=== PATIENT | female | born 1935 | race Caucasian/White ===

== ENCOUNTER → 2019-01-14 | Outpatient (CLI) | payer MEDICARE, BC ==
--- NOTE | 2019-01-14 22:01 | MR ---
EXAMINATION TYPE: MR shoulder RT wo con DATE OF EXAM: 01/14/2019 COMPARISON: None HISTORY: Rt shoulder pain, weakness TECHNIQUE: Multiplanar, multisequence imaging of the right shoulder is performed without contrast. FINDINGS: Fluid is in the subacromial bursa and subdeltoid bursa. Fluid transverses the supraspinatus tendon compatible with a small tear. No retraction is evident. Supraspinatus tendon extends distal t o the acromion. A small acromial spur is at the inferior aspect which can contribute to impingement s yndrome. Supraspinatus muscle is normal. Infraspinatus and subscapularis muscles appear intact. Fluid surrounds subscapularis tendon. Acromioclavicular Joint: Acromioclavicular joint hypertrophy is present with upward spurring. Glenohumeral Joint: There is narrowing of the glenohumeral joint space. Labrum: The labrum appears grossly intact given limitation of non-arthrogram study. Biceps Tendon: There is fluid surrounding the long head of the biceps tendon. Moderate tendinosis dulce uld be considered. Bone marrow signal: No focal abnormal marrow signal is appreciated. Other: No additional significant abnormality is appreciated. IMPRESSION: 1. Perforation of the distal supraspinatus tendon compatible with small tear without retraction. Comp lete tear is not evident. 2. Small joint effusion fluid extending into the subscapularis and subdeltoid spaces. 3. Tendinosis of the long head of biceps tendon.
== END | disposition home or self-care (01) ==
LOC: RADMRIMAIN 17:02
PROVIDERS: ATTEND Family Medicine
DX: M25.411 Effusion, right shoulder (principal); M67.813 Other specified disorders of tendon, right shoulder

== ENCOUNTER 2022-08-01 08:37 | Day surgery (SDC) | payer MEDICARE, BC ==
[2022-07-27 14:38] VITALS: BMI 30.4
[~2022-08-01 08:37] MED LIST: LACTATED RINGERS 1,000 ML IV SCH
[2022-08-01 09:00] VITALS: RESP 16; TEMP 97.3
[2022-08-01 09:07] LABS: Glucose,Whole Blood 174 mg/dL (70-110)
--- NOTE | 2022-08-01 09:22 | P.GSHP ---
History of Present Illness H&P Date: 08/01/22 CHIEF COMPLAINT: GERD HISTORY OF PRESENT ILLNESS: The patient is a 87-year-old female who presents reports gastroesophageal reflux disease. Upper endoscopy was offered for further evaluation and management. PAST MEDICAL HISTORY: Please see list. PAST SURGICAL HISTORY: Please see list. MEDICATIONS: Please see list. ALLERGIES: Please see list. SOCIAL HISTORY: No illicit drug use FAMILY HISTORY: No reports of Crohn disease or ulcerative colitis. REVIEW OF ORGAN SYSTEMS: CONSTITUTIONAL: No reports of fevers or chills. GI: Denies any blood in stools or constipation. PHYSICAL EXAM: VITAL SIGNS: Stable GENERAL: Well-developed and pleasant in no acute distress. HEENT: No scleral icterus. Extraocular movements grossly intact. Moist buccal mucosa. NECK: Supple without lymphadenopathy. CHEST: Unlabored respirations. Equal bilateral excursions. CARDIOVASCULAR: Regular rate and rhythm. Distal 2+ pulses. ABDOMEN: Soft, nondistended. MUSCULOSKELETAL: No clubbing, cyanosis, or edema. ASSESSMENT: 1. Gastroesophageal reflux disease PLAN: 1. Recommend proceeding with an upper endoscopy Past Medical History Past Medical History: Diabetes Mellitus, Hyperlipidemia, Hypertension Additional Past Medical History / Comment(s): HIATAL HERNIA. SOME DIFFICULTY SWALLOWING AT TIMES. HX TRIGEMINAL NEURALGIA. ANEMIA History of Any Multi-Drug Resistant Organisms: None Reported Past Surgical History: Cholecystectomy Additional Past Surgical History / Comment(s): BILAT CATARACTS REMOVED WITH LENS IMPLANTS. EGD/COLONOSCOPY. TRIGEMINAL NEURALGIA TX. ESOPHAGEAL NODULE REMOVED Past Anesthesia/Blood Transfusion Reactions: No Reported Reaction Smoking Status: Never smoker - Past Family History Mother Family Medical History: Cancer Sister(s) Family Medical History: Cancer Daughter(s) Family Medical History: Cancer Medications and Allergies Home Medications Medication Instructions Recorded Confirmed Type Aspirin EC [Ecotrin Low Dose] 81 mg PO DAILY 07/27/22 07/27/22 History Biotin 5 mg PO DAILY 07/27/22 07/27/22 History Cholestyramine (with Sugar) 4 gm PO DAILY 07/27/22 07/27/22 History [Cholestyramine Packet] Cyanocobalamin [Vitamin B-12] 500 mcg PO DAILY 07/27/22 07/27/22 History Ezetimibe [Zetia] 10 mg PO DAILY 07/27/22 07/27/22 History Ferrous Sulfate [Feosol] 325 mg PO BID 07/27/22 07/27/22 History Furosemide [Lasix] 20 mg PO MOWEFR 07/27/22 08/01/22 History Insulin Regular [HumuLIN R] 10 units SQ AC-SUPPER 07/27/22 07/27/22 History Insulin Regular [HumuLIN R] 57 units SQ QAM 07/27/22 07/27/22 History Magnesium Oxide [Magnesium] 500 mg PO DAILY 07/27/22 07/27/22 History Rosuvastatin [Crestor] 10 mg PO FR 07/27/22 07/27/22 History glipiZIDE 5 mg PO AC-SUPPER 07/27/22 07/27/22 History glipiZIDE [Glucotrol] 10 mg PO AC-BRKFST 07/27/22 07/27/22 History lisinopriL [Zestril] 5 mg PO DAILY 07/27/22 07/27/22 History metFORMIN HCL [Glucophage] 500 mg PO BID 07/27/22 07/27/22 History Allergies Allergy/AdvReac Type Severity Reaction Status Date / Time Latex, Natural Rubber Allergy Rash/Hives Verified 07/27/22 14:27 Surgical - Exam Vital Signs Temp Pulse Resp BP Pulse Ox 97.3 F L 106 H 16 123/57 98 08/01/22 08:59 08/01/22 08:59 08/01/22 08:59 08/01/22 08:59 08/01/22 08:59 Results - Labs Abnormal Lab Results - Last 24 Hours (Table) 08/01/22 Range/Units 09:03 POC Glucose (mg/dL) 174 H (70-110) mg/dL
[2022-08-01] MEDS ORDERED: LIDOCAINE 2% INJ 20 MG/ML (2 ML VIAL) ONE (09:24)
[2022-08-01] MEDS ORDERED: PROPOFOL 10 MG/ML 20 ML VIAL IV ONE (09:24)
[2022-08-01 09:44] LABS: Glucose,Whole Blood 163 mg/dL (70-110)
[2022-08-01 10:11] VITALS: BP 106/68; PULSE 80
--- NOTE | 2022-08-01 11:20 | P.PCN ---
Date of Procedure: 08/01/22 Description of Procedure: PREOPERATIVE DIAGNOSIS: Diaphragmatic hiatal hernia Anemia Dysphagia POSTOPERATIVE DIAGNOSIS: Diaphragmatic hiatal hernia, paraesophageal, incarcerated Chronic gastritis OPERATION: Esophagogastroduodenoscopy with biopsies along antrum, duodenum SURGEON: Amira Matt MD ANESTHESIA: MAC. INDICATIONS: The patient is a 87-year-old female who presents with dysphagia, anemia. Benefits and risks of the procedure were described. Informed consent was obtained. DESCRIPTION: The patient was brought into the endoscopy suite and laid in the left lateral decubitus position. An Olympus gastroscope was passed along the posterior oropharynx down to the distal esophagus where the squamocolumnar junction was encountered at 33 cm from the incisors. The stomach was entered and no bile reflux was found. Additional findings are listed below. Biopsies with cold forceps were obtained of the antrum. The first through third portion of the duodenum was examined. Retroflexion of the scope confirmed Hill grade 4 lower esophageal valve. The squamocolumnar junction demonstrated LA grade B erosive esophagitis. The stomach was desufflated. The patient tolerated the procedure well. FINDINGS: Squamocolumnar junction 33 cm from the incisors. Diaphragmatic hiatus at 40 cm. Hiatal hernia, 7 cm, paraesophageal Hill grade 4 lower esophageal valve. LA grade B erosive esophagitis. Biopsies obtained duodenum Chronic gastritis with ulceration along hiatal hernia. RECOMMENDATIONS: 1. Recommend surgical correction of large paraesophageal hiatal hernia due to dysphagia and anemia 2. Recommend cardiac risk assessment for repair of large paraesophageal hiatal hernia
== END 2022-08-01 10:43 | disposition home or self-care (01) ==
LOC: ORWHC2ENDO 08:37
PROVIDERS: ATTEND Surgery Plastic and Reconstructive Surgery
DX: K29.50 Unspecified chronic gastritis without bleeding (principal); K21.00 Gastro-esophageal reflux disease with esophagitis, without bleeding; K44.9 Diaphragmatic hernia without obstruction or gangrene; D64.9 Anemia, unspecified; E11.9 Type 2 diabetes mellitus without complications; I10 Essential (primary) hypertension; E78.5 Hyperlipidemia, unspecified; Z90.49 Acquired absence of other specified parts of digestive tract; Z98.890 Other specified postprocedural states; Z79.82 Long term (current) use of aspirin; Z79.84 Long term (current) use of oral hypoglycemic drugs; Z91.040 Latex allergy status; Z79.899 Other long term (current) drug therapy
CPT/HCPCS: 43239; J2704; J2001; 88305

== ENCOUNTER → 2022-10-15 | Outpatient (CLI) | payer MEDICARE, BC ==
--- NOTE | 2022-10-15 11:40 | FL ---
EXAMINATION TYPE: FL barium swallow DATE OF EXAM: 10/15/2022 11:30 AM COMPARISON: None CLINICAL INDICATION:Female, 87 years old with history of K44.9 DIAPHRAGMATIC HERNIA; TECHNIQUE: The procedure was explained and patient history elicited. All patient questions were ans wered prior to start of procedure. Multiple spot fluoroscopic images of the esophagus were obtained a fter the oral ingestion of effervescent crystals and liquid barium as the contrast agent. Fluoroscopic time: 1.22 min Fluoroscopic images: 0 Radiographs 887.16 taken: 59 DAP: [id number] FINDINGS: Tertiary contractions with delayed emptying of the esophagus. Moderate to large hiatal hernia is susp ected with lucency projecting near the distal esophagus. This impresses upon the distal esophagus del aying emptying into the stomach. IMPRESSION: Suspected moderate to large hiatal hernia with mass effect on the distal esophagus during emptying. Esophageal dysmotility.
== END | disposition home or self-care (01) ==
LOC: RADUSWWP 10:34
PROVIDERS: ATTEND Surgery Plastic and Reconstructive Surgery
DX: K44.9 Diaphragmatic hernia without obstruction or gangrene (principal); K22.4 Dyskinesia of esophagus
CPT/HCPCS: 74220

== ENCOUNTER 2022-11-15 11:52 | Day surgery (SDC) | payer MEDICARE, BC ==
--- NOTE | 2022-11-15 06:43 | P.GSHP ---
History of Present Illness H&P Date: 11/15/22 CHIEF COMPLAINT: Paraesophageal hiatal hernia with gastroesophageal reflux disease. HISTORY OF PRESENT ILLNESS: The patient is a 87-year-old female who presents with symptomatic paraesophageal hiatal hernia over one year with gastroesophageal reflux disease. She has completed upper endoscopy workup. Now she presents for surgical intervention. PAST MEDICAL HISTORY: Please see list. PAST SURGICAL HISTORY: Please see list. MEDICATIONS: Please see list. ALLERGIES: Please see list. SOCIAL HISTORY: No illicit drug use FAMILY HISTORY: No reports of Crohn disease or ulcerative colitis. REVIEW OF ORGAN SYSTEMS: CONSTITUTIONAL: No reports of fevers or chills. GI: Denies any blood in stools or constipation. PHYSICAL EXAM: VITAL SIGNS: Stable GENERAL: Well-developed pleasant and in no acute distress. HEENT: No scleral icterus. Extraocular movements grossly intact. Moist buccal mucosa. NECK: Supple without lymphadenopathy. CHEST: Unlabored respirations. Equal bilateral excursions. CARDIOVASCULAR: Regular rate and rhythm. Distal 2+ pulses. ABDOMEN: Soft, nondistended. No peritoneal signs. MUSCULOSKELETAL: No clubbing, cyanosis, or edema. SKIN: Well-perfused. Good skin turgor. REPORTS: Upper endoscopy demonstrates paraesophageal hiatal hernia BARIUM SWALLOW: Images reviewed demonstrating paraesophageal hiatal hernia. This is my independent interpretation. REPORTS: Cardiology risk assessment obtained. Please see chart. ASSESSMENT: 1. Diaphragmatic paraesophageal hiatal hernia with severe gastroesophageal reflux disease. PLAN: 1. Recommend proceeding with a robotic paraesophageal hiatal hernia with possible mesh. 2. Benefits and risks of surgical intervention was discussed including possibility of open technique. 3. Inpatient hospitalization recommended of 2 nights 4. DVT prophylaxis. 5. Antibiotic prophylaxis. 6. She has also completed a very low caloric high-protein diet to address underlying hepatomegaly. 7. Non narcotic pain management including abdominal wall block described 8. Blood sugar glucose described. 9. Weight loss management described. Past Medical History Past Medical History: Diabetes Mellitus, Hyperlipidemia, Hypertension Additional Past Medical History / Comment(s): HIATAL HERNIA. SOME DIFFICULTY SWALLOWING AT TIMES. 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 ANEMIA- gets iron infusions. has "kidney problems" nothing diagnosed as yet History of Any Multi-Drug Resistant Organisms: None Reported Past Surgical History: Cholecystectomy Additional Past Surgical History / Comment(s): BILAT CATARACTS REMOVED WITH LENS IMPLANTS, colonocopy polyps removed. EGD/COLONOSCOPY. TRIGEMINAL NEURALGIA TX. ESOPHAGEAL NODULE REMOVED Past Anesthesia/Blood Transfusion Reactions: No Reported Reaction Additional Past Anesthesia/Blood Transfusion Reaction / Comment(s): no transfusion issues reported Smoking Status: Never smoker - Past Family History Mother Family Medical History: Cancer Sister(s) Family Medical History: Cancer Daughter(s) Family Medical History: Cancer Medications and Allergies Home Medications Medication Instructions Recorded Confirmed Type Aspirin EC [Ecotrin Low Dose] 81 mg PO DAILY 07/27/22 11/12/22 History Cyanocobalamin [Vitamin B-12] 500 mcg PO DAILY 07/27/22 11/12/22 History Ezetimibe [Zetia] 10 mg PO DAILY 07/27/22 11/12/22 History Ferrous Sulfate [Iron (65 MG 325 mg PO BID 07/27/22 11/12/22 History Elemental)] Furosemide [Lasix] 20 mg PO MOWEFR 07/27/22 11/12/22 History Insulin Regular [HumuLIN R] 10 units SQ AC-SUPPER 07/27/22 11/12/22 History Insulin Regular [HumuLIN R] 57 units SQ QAM 07/27/22 11/12/22 History Rosuvastatin [Crestor] 10 mg PO FR 07/27/22 11/12/22 History glipiZIDE 5 mg PO AC-SUPPER 07/27/22 11/12/22 History glipiZIDE [Glucotrol] 10 mg PO AC-BRKFST 07/27/22 11/12/22 History lisinopriL [Zestril] 5 mg PO DAILY 07/27/22 11/12/22 History metFORMIN HCL [Glucophage] 500 mg PO BID 07/27/22 11/12/22 History Multivitamin/Iron/Folic Acid 1 tab PO DAILY 11/12/22 11/12/22 History [Centrum Complete Multivit Tab] Vit D3(Unk) 1 tab PO DAILY 11/12/22 11/12/22 History Allergies Allergy/AdvReac Type Severity Reaction Status Date / Time Latex, Natural Rubber Allergy Rash/Hives Verified 11/12/22 15:01 Sulfa (Sulfonamide Allergy Rash/Hives Verified 11/12/22 15:01 Antibiotics)
[~2022-11-15 11:52] MED LIST changes: +ACETAMINOPHEN TAB 500 MG TAB PO PRN; +HEPARIN SODIUM,PORCINE/PF 5,000 UNIT/0.5 ML SYRINGE SQ PRN; +LACTATED RINGERS 1,000 ML IV ONE; -LACTATED RINGERS 1,000 ML IV SCH
[2022-11-15 13:04] VITALS: BP 123/54; PULSE 91; RESP 18; TEMP 97.6
[2022-11-15 13:46] LABS: Glucose,Whole Blood 151 mg/dL (70-110)
[2022-11-15] MEDS: ONDANSETRON 4 MG/2 ML VIAL IVP PRN ×2 (13:56→13:59)
[2022-11-15 14:01] LABS: Anisocytosis Slight; Basophils # (A) 0.1 k/uL (0-0.2); Basophils % (A) 1 %; Eosinophils # (A) 0.1 k/uL (0-0.7); Eosinophils % (A) 1 %; HCT 36.9 % (34.0-46.0); HGB 12.6 gm/dL (11.4-16.0); Lymphocytes # (A) 2.4 k/uL (1.0-4.8); Lymphocytes % (A) 22 %; MCH 31.4 pg (25.0-35.0); MCHC 34.2 g/dL (31.0-37.0); Mean Platelet Volume 9.5; Monocytes # (A) 0.7 k/uL (0-1.0); Monocytes % (A) 6 %; Neutrophils # (A) 7.4 k/uL (1.3-7.7); Neutrophils % (A) 68 %; Platelet Count 245 k/uL (150-450); RBC 4.01 m/uL (3.80-5.40); RDW 18.6 % (11.5-15.5); WBC 10.9 k/uL (3.8-10.6)
[2022-11-15 14:16] LABS: ALT 39 U/L (4-34); African American GFR (CKD) 54 (>60 ml/min/1.73 sqM); Albumin 4.5 g/dL (3.5-5.0); Anion Gap 11 mmol/L; Blood Urea Nitrogen 39 mg/dL (7-17); Calcium 9.8 mg/dL (8.4-10.2); Carbon Dioxide 16 mmol/L (22-30); Chloride 111 mmol/L (98-107); Glucose 147 mg/dL (74-99); Non-African American GFR(CKD) 47 (>60 ml/min/1.73 sqM); Sodium 138 mmol/L (137-145); Total Bilirubin 0.6 mg/dL (0.2-1.3); Total Protein 7.6 g/dL (6.3-8.2)
[2022-11-15 14:32] LABS: AST 41 U/L (14-36); Alkaline Phosphatase 92 U/L (38-126); Potassium 5.8 mmol/L (3.5-5.1)
--- NOTE | 2022-11-15 15:58 | P.PN ---
Subjective Progress Note Date: 11/15/22 CHIEF COMPLAINT: Paraesophageal hiatal hernia HISTORY OF PRESENT ILLNESS: The patient is a 87-year-old female who presents with symptomatic paraesophageal hiatal hernia. She has been following her to be protein diet. Her family is at bedside. She denies known history of high potassium. She does take Zestril for diabetic nephropathy. She denies any chest pain. ROS: No reports of nausea and vomiting. No fevers or chills. No new chest pain. No productive sputum PHYSICAL EXAM: VITAL SIGNS: Reviewed CONSTITUTIONAL: Well developed and in no acute distress. EYES: Conjuctivae without sclera icterus. Extraocular movements grossly intact. HEAD, EARS, NOSE, THROAT: Moist buccal mucosa. Head is atraumatic, normocephalic. Hears conversational speech. No nasal drainage. RESPIRATORY: Non-labored respirations and equal bilateral excursions. CARDIOVASCULAR: Palpable 2+ radial pulses. ABDOMEN: Nontender MUSCULOSKELETAL: No gross deformity of the lower extremities noted. No clubbing. No cyanosis. SKIN: Good skin turgor. Well perfused. NEUROLOGIC: Cranial nerves II through XII grossly intact. No focal or lateralizing signs. PSYCH: Appropriate affect. Alert and oriented to person, place and time. CLINICAL LABS: Reviewed. Potassium elevated 5.8 down to 5.5 on repeat. Potas sium in 2016 was 5.3. ASSESSMENT: 1. Paraesophageal hiatal hernia, incarcerated 2. Diabetes type 2 with diabetic nephropathy 3. Hyperkalemia PLAN: 1. Discussion with anesthesia including family performed at bedside. Due to the high-risk nature of the procedure, comorbidities and very high potassium level, surgery is canceled for today. 2. Patient is not symptomatic from hyperkalemia. Medical reconciliation performed with discontinue Zestril and use low potassium foods. 3. She may eat normal diet throughout the weekend until Saturday. 4. Surgery scheduled for November 23 with repeat blood work November 19 and November 22. Lap sheet given. 5. All questions addressed. Objective - Vital Signs Vital signs: Vital Signs Temp 97.6 F 11/15/22 13:03 Pulse 91 11/15/22 13:03 Resp 18 11/15/22 13:03 BP 123/54 11/15/22 13:03 Pulse Ox 96 11/15/22 13:03 FiO2 Intake & Output 11/14/22 11/15/22 11/15/22 18:59 06:59 18:59 Weight 89.1 kg - Labs CBC & Chem 7: 11/15/22 13:44 11/15/22 14:53 Labs: Abnormal Lab Results - Last 24 Hours (Table) 11/15/22 11/15/22 11/15/22 Range/Units 13:43 13:44 13:44 WBC 10.9 H (3.8-10.6) k/uL RDW 18.6 H (11.5-15.5) % Potassium 5.8 H (3.5-5.1) mmol/L Chloride 111 H (98-107) mmol/L Carbon Dioxide 16 L (22-30) mmol/L BUN 39 H (7-17) mg/dL Creatinine 1.06 H (0.52-1.04) mg/dL Glucose 147 H (74-99) mg/dL POC Glucose (mg/dL) 151 H (70-110) mg/dL AST 41 H (14-36) U/L ALT 39 H (4-34) U/L 11/15/22 Range/Units 14:53 WBC (3.8-10.6) k/uL RDW (11.5-15.5) % Potassium 5.5 H (3.5-5.1) mmol/L Chloride (98-107) mmol/L Carbon Dioxide (22-30) mmol/L BUN (7-17) mg/dL Creatinine (0.52-1.04) mg/dL Glucose (74-99) mg/dL POC Glucose (mg/dL) (70-110) mg/dL AST (14-36) U/L ALT (4-34) U/L
== END 2022-11-15 16:17 | disposition home or self-care (01) ==
LOC: OR 11:52
PROVIDERS: ATTEND Surgery Plastic and Reconstructive Surgery
DX: K44.0 Diaphragmatic hernia with obstruction, without gangrene (principal); L02.31 Cutaneous abscess of buttock; E78.5 Hyperlipidemia, unspecified; E11.21 Type 2 diabetes mellitus with diabetic nephropathy; I10 Essential (primary) hypertension; E87.5 Hyperkalemia; Z90.49 Acquired absence of other specified parts of digestive tract; Z80.9 Family history of malignant neoplasm, unspecified; Z79.82 Long term (current) use of aspirin; Z79.899 Other long term (current) drug therapy; Z79.4 Long term (current) use of insulin; Z79.84 Long term (current) use of oral hypoglycemic drugs; Z91.040 Latex allergy status; Z88.2 Allergy status to sulfonamides; Z88.1 Allergy status to other antibiotic agents; Z79.01 Long term (current) use of anticoagulants
CPT/HCPCS: 88304; 80053; 84132; 85025; 87070; 87205; 87075; 87077; 87186; 10060; J2405

== ENCOUNTER → 2022-11-19 | Outpatient (CLI) | payer MEDICARE, BC ==
[2022-11-19 16:55] LABS: ALT 27 U/L (8-44); AST 24 U/L (13-35); Albumin 4.5 d/dL (3.8-4.9); Alkaline Phosphatase 109 U/L (41-126); Blood Urea Nitrogen 25.6 mg/dL (9.0-27.0); Carbon Dioxide 19.9 mmol/L (21.6-31.8); Chloride 110 mmol/L (96-109); Globulin 2.5 d/dL (1.6-3.3); Glucose 190 mg/dL (70-110); Sodium 141 mmol/L (135-145); Total Bilirubin 0.3 mg/dL (0.3-1.2)
== END | disposition home or self-care (01) ==
LOC: LABWHC1 08:27
PROVIDERS: ATTEND Surgery Plastic and Reconstructive Surgery
DX: E11.21 Type 2 diabetes mellitus with diabetic nephropathy (principal)
CPT/HCPCS: 36415; 80053

== ENCOUNTER → 2022-11-22 | Outpatient (CLI) | payer MEDICARE, BC ==
[2022-11-22 15:20] LABS: ALT 30 U/L (8-44); AST 27 U/L (13-35); Albumin 4.6 d/dL (3.8-4.9); Alkaline Phosphatase 112 U/L (41-126); Blood Urea Nitrogen 29.5 mg/dL (9.0-27.0); Calcium 10.2 mg/dL (8.7-10.3); Chloride 105 mmol/L (96-109); Globulin 2.7 d/dL (1.6-3.3); Glucose 176 mg/dL (70-110); Potassium 5.2 mmol/L (3.5-5.5); Sodium 139 mmol/L (135-145); Total Bilirubin 0.3 mg/dL (0.3-1.2); Total Protein 7.3 d/dL (6.2-8.2)
== END | disposition home or self-care (01) ==
LOC: LABWHC1 07:29
PROVIDERS: ATTEND Surgery Plastic and Reconstructive Surgery
DX: E11.21 Type 2 diabetes mellitus with diabetic nephropathy (principal)
CPT/HCPCS: 36415; 80053

== ENCOUNTER 2022-11-23 09:35 | Day surgery (SDC) | payer MEDICARE, BC ==
--- NOTE | 2022-11-23 05:18 | P.GSHP ---
History of Present Illness H&P Date: 11/23/22 CHIEF COMPLAINT: Paraesophageal hiatal hernia with gastroesophageal reflux disease. HISTORY OF PRESENT ILLNESS: The patient is a 87-year-old female who presents with symptomatic paraesophageal hiatal hernia over one year with gastroesophageal reflux disease. She has completed upper endoscopy workup. Now she presents for surgical intervention. PAST MEDICAL HISTORY: Please see list. PAST SURGICAL HISTORY: Please see list. MEDICATIONS: Please see list. ALLERGIES: Please see list. SOCIAL HISTORY: No illicit drug use FAMILY HISTORY: No reports of Crohn disease or ulcerative colitis. REVIEW OF ORGAN SYSTEMS: CONSTITUTIONAL: No reports of fevers or chills. GI: Denies any blood in stools or constipation. PHYSICAL EXAM: VITAL SIGNS: Stable GENERAL: Well-developed pleasant and in no acute distress. HEENT: No scleral icterus. Extraocular movements grossly intact. Moist buccal mucosa. NECK: Supple without lymphadenopathy. CHEST: Unlabored respirations. Equal bilateral excursions. CARDIOVASCULAR: Regular rate and rhythm. Distal 2+ pulses. ABDOMEN: Soft, nondistended. No peritoneal signs. MUSCULOSKELETAL: No clubbing, cyanosis, or edema. SKIN: Well-perfused. Good skin turgor. REPORTS: Upper endoscopy demonstrates paraesophageal hiatal hernia BARIUM SWALLOW: Images reviewed demonstrating paraesophageal hiatal hernia. This is my independent interpretation. LABS: Potassium 5.2, 11/22/22 REPORTS: Cardiology risk assessment obtained. Please see chart. ASSESSMENT: 1. Diaphragmatic paraesophageal hiatal hernia with severe gastroesophageal reflux disease. PLAN: 1. Recommend proceeding with a robotic paraesophageal hiatal hernia with possible mesh. 2. Benefits and risks of surgical intervention was discussed including possibility of open technique. 3. Inpatient hospitalization recommended of 2 nights 4. DVT prophylaxis. 5. Antibiotic prophylaxis. 6. She has also completed a very low caloric high-protein diet to address underlying hepatomegaly. 7. Non narcotic pain management including abdominal wall block described 8. Blood sugar glucose described. 9. Weight loss management described. Past Medical History Past Medical History: Diabetes Mellitus, Hyperlipidemia, Hypertension Additional Past Medical History / Comment(s): HIATAL HERNIA. SOME DIFFICULTY SWALLOWING AT TIMES. 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 ANEMIA- gets iron infusions. has "kidney problems" nothing diagnosed as yet History of Any Multi-Drug Resistant Organisms: None Reported Past Surgical History: Cholecystectomy Additional Past Surgical History / Comment(s): BILAT CATARACTS REMOVED WITH LENS IMPLANTS, colonocopy polyps removed. EGD/COLONOSCOPY. TRIGEMINAL NEURALGIA TX. ESOPHAGEAL NODULE REMOVED Past Anesthesia/Blood Transfusion Reactions: No Reported Reaction Additional Past Anesthesia/Blood Transfusion Reaction / Comment(s): no transfusion issues reported Smoking Status: Never smoker - Past Family History Mother Family Medical History: Cancer Sister(s) Family Medical History: Cancer Daughter(s) Family Medical History: Cancer Medications and Allergies Home Medications Medication Instructions Recorded Confirmed Type Aspirin EC [Ecotrin Low Dose] 81 mg PO DAILY 07/27/22 11/19/22 History Ezetimibe [Zetia] 10 mg PO DAILY 07/27/22 11/19/22 History Ferrous Sulfate [Iron (65 MG 325 mg PO BID 07/27/22 11/19/22 History Elemental)] Furosemide [Lasix] 20 mg PO MOWEFR 07/27/22 11/19/22 History Insulin Regular [HumuLIN R] 30 units SQ QAM 07/27/22 11/19/22 History Rosuvastatin [Crestor] 10 mg PO FR 07/27/22 11/19/22 History metFORMIN HCL [Glucophage] 500 mg PO BID 07/27/22 11/19/22 History Allergies Allergy/AdvReac Type Severity Reaction Status Date / Time Latex, Natural Rubber Allergy Rash/Hives Verified 11/19/22 13:25 Sulfa (Sulfonamide Allergy Rash/Hives Verified 11/19/22 13:25 Antibiotics)
[~2022-11-23 09:35] MED LIST changes: -LACTATED RINGERS 1,000 ML IV ONE; +ONDANSETRON 4 MG/2 ML VIAL IVP PRN
[2022-11-23] MEDS ORDERED: MIDAZOLAM 2 MG/2 ML VIAL IV PRN (09:44)
[2022-11-23] MEDS ORDERED: HYDROmorphone 0.5 MG/0.5 ML SYRINGE IVP PRN (09:44)
[2022-11-23] MEDS: LACTATED RINGERS 1,000 ML IV SCH (10:07)
[2022-11-23 10:16] LABS: Glucose,Whole Blood 170 mg/dL (70-110)
[2022-11-23 11:01] LABS: ALT 34 U/L (4-34); AST 38 U/L (14-36); African American GFR (CKD) 66 (>60 ml/min/1.73 sqM); Albumin 4.6 g/dL (3.5-5.0); Alkaline Phosphatase 117 U/L (38-126); Anion Gap 12 mmol/L; Blood Urea Nitrogen 26 mg/dL (7-17); Calcium 9.9 mg/dL (8.4-10.2); Carbon Dioxide 20 mmol/L (22-30); Chloride 106 mmol/L (98-107); Glucose 175 mg/dL (74-99); Non-African American GFR(CKD) 57 (>60 ml/min/1.73 sqM); Potassium 4.6 mmol/L (3.5-5.1); Sodium 138 mmol/L (137-145); Total Bilirubin 0.7 mg/dL (0.2-1.3); Total Protein 7.8 g/dL (6.3-8.2)
[2022-11-23] MEDS ORDERED: ROCURONIUM 10 MG/ML (5 ML VIAL) IV ONE (11:04)
[2022-11-23] MEDS ORDERED: fentaNYL (PF) 50 MCG/ML 2 ML AMP ONE (11:04)
[2022-11-23] MEDS ORDERED: PROPOFOL 10 MG/ML 20 ML VIAL IV ONE (11:04)
[2022-11-23] MEDS ORDERED: NEOSTIGMINE 1 MG/ML 10 ML VIAL ONE (11:04)
[2022-11-23] MEDS ORDERED: LIDOCAINE 2% INJ 20 MG/ML (2 ML VIAL) ONE (11:04)
[2022-11-23] MEDS ORDERED: HYDROmorphone (PF) 1 MG/ML ONE (11:04)
[2022-11-23] MEDS ORDERED: GLYCOPYRROLATE 0.2 MG/ML 2 ML VIAL ONE (11:04)
[2022-11-23] MEDS ORDERED: SUCCINYLCHOLINE CHLORIDE 200 MG/10 ML VIAL IV ONE (11:04)
[2022-11-23] MEDS ORDERED: LIDOCAINE 0.5%-EPI 1:200,000 50 ML VIAL SQ ONE (11:09)
[2022-11-23] MEDS ORDERED: diphenhydrAMINE 50 MG/ML 1 ML VIAL IVP PRN (12:53)
[2022-11-23] MEDS ORDERED: NALOXONE 0.4 MG/ML 1 ML VIAL IV PRN (12:53)
[2022-11-23] MEDS ORDERED: 0.9% NACL WITH KCL 20 MEQ/L 1,000 ML IV SCH (13:00)
--- NOTE | 2022-11-23 13:00 | P.OP ---
Date of Procedure: 11/23/22 Description of Procedure: SURGEON: MAGNO BELTRÁN MD PREOPERATIVE DIAGNOSES: 1. Symptomatic paraesophageal diaphragmatic hiatal hernia. 2. Gastroesophageal reflux disease. 3. Hypertensive heart disease 4. Generalized anxiety disorder 5. Anemia POSTOPERATIVE DIAGNOSES: 1. Paraesophageal midline diaphragmatic hernia, 6 cm, with incarceration. 2. Gastroesophageal reflux disease. 3. Hypertensive heart disease 4. Generalized anxiety disorder 5. Anemia OPERATION: 1. Robotic-assisted da Heidi Xi laparoscopic repair of incarcerated paraesophageal hiatal hernia, 6 x 5 cm, with Bovill Biopatch A 8 x 8 cm. 2. Intraoperative esophagogastroduodenoscopy ANESTHESIA: General with local anesthetic. ESTIMATED BLOOD LOSS: 5 mL SPECIMENS REMOVED: None COMPLICATIONS: None. Condition: stable Disposition: floor FINDINGS: 1. Midline incarcerated paraesophageal hiatal hernia 6 x 5cm 2. Intraoperative upper endoscopy confirms complete closure of hiatal hernia from Hill grade 4 to Hill grade 1 3. Intraesophageal length over 2 cm INDICATIONS: The patient is a 87-year-old female who presents with gastroesophageal reflux disease poorly controlled despite medications, and a symptomatic diaphragmatic hiatal hernia. Preoperative workup including upper endoscopy demonstrated a sliding hiatal hernia. The patient completed an esophageal manometry. Given the severity of symptoms, the patient had elected for surgical intervention. Benefits and risks including bleeding, infection, recurrence, dysphagia, injury to the lung, need for further surgery was described at length. Informed consent was obtained. DESCRIPTION: The patient was brought into the operating room and placed in supine position. Preoperatively the patient had received heparin subcutaneously for DVT prophylaxis. After general induction, the abdomen was prepped and draped in standard sterile fashion. The patient had previously voided prior to coming to the operating room. Ioban draping was placed along the abdomen. A timeout protocol was confirmed with the surgical team, for which the patient's name, procedure to be performed including DVT prophylaxis with bilateral SCDs, and preoperative antibiotics were also confirmed. A robotic da Heidi Xi system was prepped and primed. At 12 cm from the xiphoid to just below the umbilicus, proposed port sites were marked with indelible marker along the left axillary line, left mid-clavicular line with each ports were marked 10 cm from each other. A 5 mm 0 degrees laparoscopic trocar entry was performed along the left upper quadrant. The abdomen was insufflated to 15 mmHg pressure was tolerated well. Diagnostic laparoscopy demonstrated no injury to bowel, viscera, or mesentery. No injury had occurred to the small bowel or viscera. The liver was smooth consistent with two-week high-protein low-carb diet. Previous trochar sites from cholecystectomy were used. Next, one 8 mm robotic port was placed along the right upper abdomen. An 8-mm port was were placed along the right lateral lateral abdominal wall. The camera 8-mm port was maintained along the epigastrium. Another 12 mm port was placed along the left upper abdominal wall after exchanging the 5 mm port. Please note that the ports were placed at least 20 cm away from the target anatomy. Care was taken to check that each robotic arm were safely away from collision with the bed or the patient. At the epigastrium, a medium sized Princess liver retractor was placed under direct visualization with the [employer] placed under the right shoulder of the patient. All robotic arms were used. The patient was repositioned in reverse Trendelenburg position at 21-degrees after lowering the bed. The robot was docked above the right side of the patient. Using a grasper for arm 3, a grasper for arm 1, including vessel sealer for arm 2, the robotic system was docked and primed as described. Instruments were interchanged by the hospital nursing assistant. I had sat at the console. The gastrohepatic ligament was cleaved using a vessel sealer. Next, the phrenoesophageal ligament was mobilized and the distal esophagus was mobilized circumferentially. The left and right crura was identified. Circumferentially, the hernia sac was excised and brought into the peritoneal cavity. Moderate dissection into the mediastinum was performed to release the esophagus into the abdominal cavity. The paraesophageal hiatal hernia sac was also incised and divided from the esophagus. Care was taken to avoid any gastrotomy. The measured defect was consistent with 3 cm axial length and 3 cm in width. After dissection, the distal esophagus of 2+ cm was brought into the abdominal cavity. Once the hiatus and crura was dissected, 2-0 VLOC nonabsorbable suture was placed to reapproximate the diaphragmatic hiatus posteriorly. To buttress the repair, a Bovill Biopatch A was prepared along the back table and cut in half of a orozco-hole fashion as to reinforce the repair as an underlay. The mesh was placed along the crural repair and tagged using horizontal mattress sutures using 2-0 VLOC. I went to the head of the bed to perform intraoperative esophagogastroduodenoscopy and placement of a 56Fr bougie. The bougie was passed along the posterior oropharynx into the stomach to address pre-existing esophageal dysmotility for 2 minutes then removed. An Olympus gastroscope was passed through posterior oropharynx. Retroflexion of the scope confirmed a Hill grade 1 lower esophageal valve. The stomach had been desufflated. No evidence of leaks were found of the esophagus or stomach. The GI tract with desufflated This concluded the endoscopic portion of the case. The robot was undocked from the patient. I re-scrubbed into the case. All instruments and pneumoperitoneum and specimens were evacuated from the abdominal cavity. Incisions were reapproximated using 4-0 Monocryl in an interrupted subcuticular fashion. Liquid glue was applied to the skin. Local anesthetic was infiltrated in all wounds for postop analgesia. At the end of the procedure, needle, sponge, and instrument count was verified correct by the surgical resident. The patient had tolerated the procedure well and was taken to the postanesthesia unit in stable condition. Plan - Discharge Summary Discharge Rx Participant: No New Discharge Prescriptions: Continue Aspirin EC [Ecotrin Low Dose] 81 mg PO DAILY Ferrous Sulfate [Iron (65 MG Elemental)] 325 mg PO BID Furosemide [Lasix] 20 mg PO MOWEFR metFORMIN HCL [Glucophage] 500 mg PO BID Rosuvastatin [Crestor] 10 mg PO FR Ezetimibe [Zetia] 10 mg PO DAILY Insulin Regular [HumuLIN R] 30 units SQ QAM Discharge Medication List Aspirin EC [Ecotrin Low Dose] 81 mg PO DAILY 07/27/22 [History] Ezetimibe [Zetia] 10 mg PO DAILY 07/27/22 [History] Ferrous Sulfate [Iron (65 MG Elemental)] 325 mg PO BID 07/27/22 [History] Furosemide [Lasix] 20 mg PO MOWEFR 07/27/22 [History] Insulin Regular [HumuLIN R] 30 units SQ QAM 07/27/22 [History] Rosuvastatin [Crestor] 10 mg PO FR 07/27/22 [History] metFORMIN HCL [Glucophage] 500 mg PO BID 07/27/22 [History]
[2022-11-23] MEDS: SODIUM CHLORIDE 0.9% 1,000 ML IV SCH ×2 (14:29→21:46)
[2022-11-23] MEDS: ALBUTEROL NEBULIZED 2.5 MG/3 ML INHALATION SCH ×2 (15:11→20:22)
[2022-11-23] MEDS: SIMETHICONE 80 MG CHEWABLE PO SCH ×2 (16:44→17:24)
[2022-11-23] MEDS: ACETAMINOPHEN IV (For NPO) 1,000 MG in EMPTY BAG 1 BAG IVPB SCH (17:22)
[2022-11-24] MEDS: SIMETHICONE 80 MG CHEWABLE PO SCH ×2 (00:01→05:44)
[2022-11-24] MEDS: ACETAMINOPHEN IV (For NPO) 1,000 MG in EMPTY BAG 1 BAG IVPB SCH ×2 (00:01→05:44)
[2022-11-24] MEDS: SODIUM CHLORIDE 0.9% 1,000 ML IV SCH (00:04)
[2022-11-24 06:47] LABS: Basophils % (A) 0 %; Eosinophils # (A) 0.1 k/uL (0-0.7); Eosinophils % (A) 1 %; HCT 34.3 % (34.0-46.0); HGB 11.2 gm/dL (11.4-16.0); Lymphocytes # (A) 2.2 k/uL (1.0-4.8); Lymphocytes % (A) 24 %; MCH 29.8 pg (25.0-35.0); MCHC 32.6 g/dL (31.0-37.0); MCV 91.4 fL (80.0-100.0); Mean Platelet Volume 9.4; Monocytes # (A) 0.6 k/uL (0-1.0); Monocytes % (A) 7 %; Neutrophils # (A) 6.2 k/uL (1.3-7.7); Neutrophils % (A) 66 %; Platelet Count 192 k/uL (150-450); RBC 3.75 m/uL (3.80-5.40); RDW 14.2 % (11.5-15.5); WBC 9.4 k/uL (3.8-10.6)
[2022-11-24 07:01] LABS: African American GFR (CKD) 71 (>60 ml/min/1.73 sqM); Anion Gap 7 mmol/L; Blood Urea Nitrogen 19 mg/dL (7-17); Calcium 8.7 mg/dL (8.4-10.2); Carbon Dioxide 24 mmol/L (22-30); Chloride 108 mmol/L (98-107); Magnesium 1.6 mg/dL (1.6-2.3); Non-African American GFR(CKD) 62 (>60 ml/min/1.73 sqM); Phosphorus 3.2 mg/dL (2.5-4.5); Potassium 4.3 mmol/L (3.5-5.1); Sodium 139 mmol/L (137-145)
[2022-11-24 07:54] VITALS: BP 117/69; RESP 16; TEMP 98
[2022-11-24] MEDS ORDERED: 0.9% NACL WITH KCL 20 MEQ/L 1,000 ML IV SCH (08:00)
[2022-11-24] MEDS ORDERED: ENOXAPARIN 30 MG/0.3 ML SYRINGE SQ SCH (09:00)
[2022-11-24] MEDS ORDERED: PANTOPRAZOLE 40 MG/10 ML VIAL IV SCH (09:00)
[2022-11-24] MEDS: ALBUTEROL NEBULIZED 2.5 MG/3 ML INHALATION SCH (09:49)
[2022-11-24 09:53] VITALS: PULSE 80
[2022-11-24] MEDS: LACTATED RINGERS 1,000 ML IV SCH (09:57)
--- NOTE | 2022-11-24 10:45 | P.DS ---
Providers Expected date of discharge: 11/24/22 Attending physician: Amira Matt Consults: 11/23/22 05:18 Consult Physician Routine Consulting Provider: [facility] Consult Reason/Comments: [facility] Do you want consulting provider notified?: Yes Primary care physician: Christy Mansfield [facility] Course: Patient admitted yesterday after hiatal hernia repair. Doing well today. Tolerating liquids. No nausea or vomiting. She would like to go home today. Incisions clean and dry. Will plan discharge. Plan - Discharge Summary Discharge Rx Participant: No New Discharge Prescriptions: Continue Aspirin EC [Ecotrin Low Dose] 81 mg PO DAILY Ferrous Sulfate [Iron (65 MG Elemental)] 325 mg PO BID Furosemide [Lasix] 20 mg PO MOWEFR metFORMIN HCL [Glucophage] 500 mg PO BID Rosuvastatin [Crestor] 10 mg PO FR Ezetimibe [Zetia] 10 mg PO DAILY Insulin Regular [HumuLIN R] 30 units SQ QAM Discharge Medication List Aspirin EC [Ecotrin Low Dose] 81 mg PO DAILY 07/27/22 [History] Ezetimibe [Zetia] 10 mg PO DAILY 07/27/22 [History] Ferrous Sulfate [Iron (65 MG Elemental)] 325 mg PO BID 07/27/22 [History] Furosemide [Lasix] 20 mg PO MOWEFR 07/27/22 [History] Insulin Regular [HumuLIN R] 30 units SQ QAM 07/27/22 [History] Rosuvastatin [Crestor] 10 mg PO FR 07/27/22 [History] metFORMIN HCL [Glucophage] 500 mg PO BID 07/27/22 [History]
== END 2022-11-24 12:23 | disposition home or self-care (01) ==
LOC: OR 09:35 → 5NMEDONC 13:39 → OR 11-24 12:23
PROVIDERS: ATTEND Surgery Plastic and Reconstructive Surgery
DX: K44.9 Diaphragmatic hernia without obstruction or gangrene (principal); K21.9 Gastro-esophageal reflux disease without esophagitis; I11.9 Hypertensive heart disease without heart failure; F41.1 Generalized anxiety disorder; D64.9 Anemia, unspecified; Z90.49 Acquired absence of other specified parts of digestive tract; E11.9 Type 2 diabetes mellitus without complications; I10 Essential (primary) hypertension; E78.5 Hyperlipidemia, unspecified; Z88.2 Allergy status to sulfonamides; Z88.1 Allergy status to other antibiotic agents; Z91.040 Latex allergy status; Z98.890 Other specified postprocedural states; Z80.9 Family history of malignant neoplasm, unspecified; Z79.82 Long term (current) use of aspirin; Z79.84 Long term (current) use of oral hypoglycemic drugs; Z79.02 Long term (current) use of antithrombotics/antiplatelets; Z79.01 Long term (current) use of anticoagulants; Z79.4 Long term (current) use of insulin; Z79.899 Other long term (current) drug therapy
CPT/HCPCS: 94640; 94760; 80051; 80053; 82310; 82565; 83735; 84100; 84520; 85025; 43282; C1781; J0330; J2710; J0690 ×2; J2405; J3010; J1650; J1170 ×2; J0131 ×2; J2704; C9113; J1644; J2001